=== PATIENT | male | born 1980 | race African-American/Black ===

== ENCOUNTER 2017-05-09 06:45 | Emergency (ER) | payer MEDICAID ==
[~2017-05-09] VITALS: Ht 396.2 cm; Wt 123.5 kg
[2017-05-09 06:59] VITALS: Ht 396.2 cm; Wt 123.5 kg
[2017-05-09 07:35] VITALS: BP 131/78
== END 2017-05-09 07:35 | disposition home or self-care (01) ==
LOC: ED 06:45
DX: J02.9 Acute pharyngitis, unspecified (principal); J45.909 Unspecified asthma, uncomplicated; I10 Essential (primary) hypertension